=== PATIENT | male | born 1980 | race Caucasian/White ===

== ENCOUNTER 2016-05-29 09:48 | Emergency (ER) | payer MEDICARE, MEDICAID ==
[~2016-05-29] VITALS: Ht 180.3 cm; Wt 113.4 kg
[~2016-05-29 09:48] MED LIST: BACLOFEN10 MG PO; CRANBERRY200 MG PO; FLAX OIL1000 M1 PO; HYDROCHLOROTHIA25 M1 PO; TOLTERODINE TART4 MG PO
--- NOTE | 2016-05-29 10:28 | Emergency Room Report ---
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 N Clinical Suspician of Infection? N Mental Status: 1 - Regular (Normal Baseline) Sepsis Risk:Low Sepsis Risk Have you (or family members/close friends) recently traveled outside the [place]? N If Yes, where/when: Have you had exposure to infectious disease within the past month? TB? Other? Specify: Comment The patient fell at physical therapy and injured his LEFT small finger, has deformity. He denies any other injuries. ALLERGIES Coded Allergies: No Known Allergies (05/29/16) Home Medications Reported Medications Tolterodine Tartrate (Tolterodine Tartrate ER) 4 MG PO BID #90 HYDROCHLOROTHIAZIDE (Hydrochlorothiazide) 25 MG PO DAILY #30 Cranberry Extract (Cranberry) 200 MG PO DAILY Flaxseed Oil (Flax Oil) 1,000 MG PO DAILY History Medical History General CAD? No Angina: No MO: No Hypertension? No Hyperlipidemia? No CHF? No DVT? No PE? No COPD? No Asthma? No Anemia? No GERD? No Gastric ulcers? No GI Bleed? No Hernia? No Thyroid Problems? No Hypothyroidism? No CVA? No Seizures? No Diabetes? No Renal Insuffiency? No End Stage Renal Disease? No UTI? No Stones? No BPH? No GB Disease: No Nephritic Syndrome? No Asplenia? No Hepatitis? No Sickle Cell Disease? No Arthritis? No Migraines? No Cataracts? No Glaucoma? No MRSA? No HIV? No TB? No Anxiety? No Depression? No Cancer? No More? Yes Additional hx: PRIMARY LATERAL SCLEROSIS Immunization Hx Ped.Immunizations UTD Yes DT/Tetanus 5-10 Years Ago Surgical Hx Previous Surgery?Y BACLOFEN PUMP X2 Social History Smoking Hx Smoker: Never Smoker Tobacco: No Type N/A Are you/the child exposed to second-hand smoke: No Alcohol Alcohol: No Review of Systems All Other Systems Reviewed and Negative Cardiovascular denies chest pain Gastrointestinal denies abdominal pain Musculoskeletal denies back pain, denies neck pain Psychiatric/Neurological denies headache, denies numbness Physical Exam Vital Signs Vital Signs Date Time Temp Pulse Resp B/P Pulse O2 O2 Flow FiO2 Ox Delivery Rate 05/29 1042 61 18 147/98 96 05/29 0954 98.3 72 18 120/75 96 General Appearance no apparent distress, in wheelchair Respiratory Status No: respiratory distress. Cardiovascular normal peripheral pulses Extremities deformity of the LEFT small finger at PIP joint. Skin intact. Neurologic alert, intact neurovascular status LEFT hand Medical Decision Making LABS/Meds/Orders Pt receiving controlled substance in ED? No Results/Orders Current Medication Orders Sig/Herman Start time Last Medication Dose Route Stop Time Status Admin Ondansetron HCl 0 .STK-MED ONE 05/29 1046 DC .ROUTE Ondansetron HCl 4 MG ONCE ONE 05/29 1045 DC 05/29 PO 05/29 1046 1046 Bupivacaine HCl 10 ML ONCE ONE 05/29 1030 DC 05/29 SC 05/29 1031 1046 Bupivacaine HCl 0 .STK-MED ONE 05/29 1028 DC .ROUTE Orders Procedure Date/time Status [id number] (PINKY)-3 VIEWS 05/29 1057 Active HAND-LT-3 VIEWS 05/29 0953 Active XRAY/CT/US XRAY/CT/US XRAY hand Comment X-ray interpreted by Matt Roche M.D.: Dislocation small finger PIP joint. No fracture seen. Finger x-ray postreduction: Dislocation has been reduced. Small avulsion fracture dorsal plate of the middle phalanx. Progress - The patient had a vasovagal syncopal episode approximately one to 2 minutes after digital block performed. Has regained consciousness, diaphoretic, but vital signs good. Complains of nausea. Procedures Orthopedic/Inj/Splint Progress Orthopedic Procedure Performed by: MATT ROCHE Consent: Verbal consent obtained. Risks and benefits: risks, benefits and alternatives were discussed Consent given by: patient Patient identity confirmed: verbally with patient Procedure performed: Reduction of LEFT small finger dislocation Location: LEFT small finger Sedation: None Anesthetic used: 0.5 percent bupivacaine digital block Patient tolerance: Patient tolerated the procedure well with no immediate complications Neurovascular status intact with good sensation, capillary refill and movement before and after procedure performed. Departure Departure Disposition DC Home or Self Care(routine) Clinical Impression Primary Impression: Dislocation, finger, interphalangeal joint Qualifiers: Encounter type: initial encounter Qualified Code: S63.289A - Dislocation of proximal interphalangeal joint of unspecified finger, initial encounter Secondary Impressions: Fracture of middle phalanx of finger Qualifiers: Encounter type: initial encounter Finger: little finger Fracture type: closed Fracture alignment: displaced Laterality: left Qualified Code: S62.627A - Displaced fracture of medial phalanx of left little finger, initial encounter for closed fracture Condition STABLE Referrals Contreras LANGLEY,Patrick Rai MD,A.C. (Family) Patient Instructions DI for Finger Dislocation Additional Instructions Wear finger splint. Ice and elevation for swelling. Ibuprofen or Tylenol for pain. Follow-up with orthopedics, Dr. Chairez, call for appointment. ED Critical Care Critical Care No at 1121
[2016-05-29 11:32] VITALS: BP 138/90
--- NOTE | 2016-05-29 11:33 | RADIOLOGY REPORT PS360 ---
[id number] (PINKY)-3 VIEWS CLINICAL INDICATION: Follow-up post reduction of the dislocation post-redx FINDINGS: There is been interval reduction of the dislocated PIP joint of the fifth digit. Small bulging fractures present along the dorsal proximal aspect of the middle phalanx which is in good position. IMPRESSION: Reduced dislocated PIP joint of the fifth digit
--- NOTE | 2016-05-29 11:33 | RADIOLOGY REPORT PS360 ---
HAND-LT-3 VIEWS HISTORY: Posttraumatic pain FALL COMPARISON: None FINDINGS: There is dorsal dislocation of the middle phalanx of the fifth finger. A small flake representing an avulsion fracture involves the proximal dorsal aspect of the middle phalanx. No other significant anomalies evident. IMPRESSION: Dislocated PIP joint of the fifth digit with associated small avulsion fracture involving the dorsal and proximal aspect of the middle phalanx
== END 2016-05-29 11:32 | disposition home or self-care (01) ==
LOC: ER 09:48
PROC: 3E0T33Z Introduction of Anti-inflammatory into Peripheral Nerves and Plexi, Percutaneous Approach (ICD-10-PCS; principal; 2016-05-29)
PROC: 0RSXXZZ Reposition Left Finger Phalangeal Joint, External Approach (ICD-10-PCS; principal; 2016-05-29)
PROC: 3E0T3BZ Introduction of Anesthetic Agent into Peripheral Nerves and Plexi, Percutaneous Approach (ICD-10-PCS; principal; 2016-05-29)
DX: S62.657A Nondisplaced fracture of middle phalanx of left little finger, initial encounter for closed fracture (principal); W07.XXXA Fall from chair, initial encounter; Y92.009 Unspecified place in unspecified non-institutional (private) residence as the place of occurrence of the external cause